=== PATIENT | female | born 1985 | race Caucasian/White ===

== ENCOUNTER → 2024-12-28 14:03 | Outpatient (REF) | payer OTHER, SELFPAY | LOC: RCS 14:03 | PROVIDERS: ATTENDING PHYSICIAN Internal Medicine Cardiovascular Disease; FAMILY PHYSICIAN Student in an Organized Health Care Education/Training Program | DX: R07.89 Other chest pain (principal); Z82.49 Family history of ischemic heart disease and other diseases of the circulatory system; R20.0 Anesthesia of skin; M79.2 Neuralgia and neuritis, unspecified | CPT/HCPCS: 93017 ==

== ENCOUNTER 2025-07-14 12:36 | Day surgery (SDC) | payer OTHER, SELFPAY ==
[2025-07-14] VITALS (17 sets, daily range): BP systolic 88–142; BP diastolic 51–93; BMI 28.3
--- NOTE | 2025-07-14 06:30 | ED.GENMED ---
History of Present Illness
General
Chief Complaint: Abdominal Pain
Source: patient
Time Seen by Provider: 07/14/25 06:07
History of Present Illness
History of Present Illness:
Note:
CHIEF COMPLAINT(S)
- Right lower quadrant abdominal pain
HISTORY OF PRESENT ILLNESS
The patient is a 39-year-old female presenting with right lower quadrant abdominal pain. She reports that the pain began suddenly and has progressively worsened. She noted swelling in the abdomen, commenting, 'I have shorts at home and I put them on
and theyre like normally theyre loose. I take them off they put a dress on and like, okay, yeah, sure its like weird,' indicating noticeable bloating. The patient denies any difficulty urinating, pain, or burning during urination. She experiences
slight nausea but describes it as manageable. No fevers were reported. The patient has a history of four sections, and she retains her appendix and ovaries. Her last menstrual period was approximately a month ago, and she initially thought
the pain might be cramps, but described it as 'more than any cramps Miya ever had.' The pain is located primarily in the right lower quadrant, with tenderness noted in McBurneys point upon examination. The abdominal examination reveals tenderness,
particularly in the right lower quadrant, aligning with the patients description, 'Thats where its at, right lower quadrant.'
PAST SURGICAL HISTORY
- Four sections
PHYSICAL EXAM
General: Alert, no acute distress.
Skin: Warm, dry.
Head: Normocephalic, atraumatic.
Neck: Supple, trachea midline.
Eye, Ears, Nose, Mouth, and Throat: Oral mucosa moist.
Cardiovascular: Normal peripheral perfusion, No edema.
Respiratory: Respirations are non-labored, lungs sound clear.
Gastrointestinal: Abdomen tender, particularly in the right lower quadrant.
Back: Normal range of motion, Normal alignment.
Musculoskeletal: Normal ROM, normal strength.
Neurological: Alert and oriented to person, place, time, and situation, No focal neurological deficit observed.
Psychiatric: Cooperative, appropriate mood & affect.
PROBLEM LIST
Acute:
- Right lower quadrant abdominal pain
- Abdominal bloating
PLAN
- Administer pain medication, including the option for stronger analgesics such as morphine, with consideration for the patients transportation needs.
- Perform laboratory work to include blood tests and a urinalysis.
- Obtain an abdominal scan to evaluate potential causes of pain, such as ovarian issues, appendicitis, colitis, or kidney stones.
- Consider potential differential diagnoses given family history and current symptoms.
DIFFERENTIAL DIAGNOSIS
The Differential Diagnosis includes, in no particular order and is not limited to:
- Appendicitis
- Ovarian cyst or torsion
- Gastrointestinal colitis
- Kidney stones
- Diverticulitis
- Ectopic (despite husbands vasectomy, rare cases may occur)
- Pelvic inflammatory disease
- Urinary tract infection
- Inflammatory bowel disease
- Hernia
Disposition:
SUMMARY OF ENCOUNTER
The patient, a 39-year-old female, presented to the emergency department with right lower quadrant abdominal pain and abdominal bloating. The pain was sudden in onset and progressively worsened. An examination revealed tenderness at McBurneys point.
Labs were ordered, including a CBC showing leukocytosis with a white blood cell count of 12.16 and 80% neutrophils, while a CMP was normal. A CT scan showed an appendicolith and evidence of acute appendicitis. The patient discussed her case with
general surgery and was advised on potential surgical intervention. Given her penicillin allergy, antibiotic treatment was initiated with levofloxacin (Levaquin) and metronidazole (Flagyl). The patients pain improved during the visit.
DISPOSITION
Admit for general surgery evaluation.
ASSESSMENT
Acute appendicitis with an appendicolith.
EMERGENCY TREATMENTS ADMINISTERED
Levofloxacin (Levaquin) and metronidazole (Flagyl) were administered due to the patients penicillin allergy.
MANAGEMENT OF THE PATIENTS CARE WAS DISCUSSED WITH
General surgery for evaluation of acute appendicitis.
PLAN
The plan includes admitting the patient for surgical evaluation and possible appendectomy. The treatment with levofloxacin and metronidazole due to her penicillin allergy was initiated. Pain management and monitoring will continue during her
hospital stay.
INDEPENDENT REVIEW OF LABS AND INTERPRETATION OF TESTS
- My independent review of CBC indicates leukocytosis with a WBC count of 12.16 and 80% neutrophils.
- My independent review of CMP shows normal results.
- My independent review of urinalysis shows no acute infection.
- My independent interpretation of the CT scan reveals an appendicolith with evidence of acute appendicitis.
MEDICATION RECONCILIATION
The patient was treated with levofloxacin (Levaquin) and metronidazole (Flagyl) due to her penicillin allergy.
MEDICAL DECISION MAKING
- Number and Complexity of Problems Addressed: Chronic conditions affecting care include a history of four sections. Differential diagnosis includes appendicitis, ovarian cyst or torsion, gastrointestinal colitis, kidney stones,
diverticulitis, ectopic , pelvic inflammatory disease, urinary tract infection, inflammatory bowel disease, and hernia.
- Data:
Category 1: The following labs and imaging tests were ordered and reviewed, including CBC, CMP, urinalysis, and CT scan, which showed an appendicolith indicative of acute appendicitis.
Category 3: Discussion of management with general surgery for further evaluation and potential surgical intervention.
- Risk: Prescription medication management with levofloxacin and metronidazole due to penicillin allergy was required. The initial treatment decision included risks associated with the potential need for surgical intervention. Consideration of
Admission/Observation: Escalation of care including admission/observation was considered given the complexity and risk of the patients presenting complaint, exam findings, and her underlying comorbidities. However, ultimately, I feel the patient is
safe for outpatient management with close follow-up. Reasoning: The work-up was reassuring, does not reveal any acute life/organ-threatening processes, the patients symptoms were well-controlled upon reevaluation, reexamination is reassuring, vitals
are stable, the patient agreeable with discharge, reliable for follow-up.
DIAGNOSIS
1. Acute appendicitis with appendicolith (K35.80).
Past History
Past History
ED Past Medical History: None; Negative Asthma, HTN, Hypercholesterolemia or NIDDM
ED Past Surgical History:
Social History
Tobacco: Non-smoker
Alcohol: Occasional
Personal:
Living: with family
Phy Exam
Physical Exam
Physical Exam:
.
Course
Orders/Labs/Results
Orders:
Orders
07/14/25 06:28
CT Abd/Pel (IV only)-DH only Urgent
Comment:
Reason For Exam: RLQ pain
0.9% Sodium Chloride 1000 ml [Nss] 1,000 ml IV BOLUS
Morphine Sulfate 4 mg IV NOW STA
Ondansetron Injectable [Zofran] 4 mg IV NOW STA
Test Result ONCE
07/14/25 06:41
Complete Blood Count/With Diff Urgent
Comprehensive Metabolic Panel Urgent
HCG, Urine Qualitative Screen Urgent
Date Specimen was Collected: 07/14/25
Time Specimen was Collected: 06:40
Lipase Urgent
Urinalysis Reflex To Culture Urgent
Date Specimen was Collected: 07/14/25
Time Specimen was Collected: 06:40
Urine Microscopic Reflex Cult Urgent
07/14/25 07:51
LevoFLOXacin 500 MG/100 ML [Levaquin] 500 mg in 100 ml IV NOW
MetroNIDAZOLE 500 MG/100 ML [Flagyl 500 mg] 100 ml IV NOW
Abnormal Lab Results
07/14/25
06:41
WBC 12.6 H 10^3/uL
(4.8-10.8)
Abs Immat Gran (auto) 0.1 H 10^3/uL
(0-0.05)
Absolute Neuts (auto) 10.2 H 10^3/uL
(1.4-6.5)
Absolute Lymphs (auto) 1.0 L 10^3/uL
(1.2-3.4)
Absolute Monos (auto) 1.2 H 10^3/uL
(0.1-0.6)
Neutrophils % 80.8 H %
(42.2-75.2)
Lymphocytes % 8.0 L %
(20.5-51.1)
Monocytes % 9.8 H %
(1.7-9.3)
Chloride 109 H mmol/L
(98-107)
Glucose 100 H mg/dl
(70-99)
Urine Bacteria (Reflex) Few A
(Negative)
Urine Albumin (Reflex) 1+ A
(Neg - Trace)
07/14/25 06:41
07/14/25 06:41
Vital Signs
Initial and Last Documented VS:
Initial Vital Signs
Temp Pulse Resp BP Pulse Ox
98.2 F 96 20 142/75 98
07/14/25 05:52 07/14/25 05:52 07/14/25 05:52 07/14/25 05:52 07/14/25 05:52
Last Documented Vital Signs
Temp Pulse Resp BP Pulse Ox
98.2 F 84 14 114/74 98
07/14/25 05:52 07/14/25 07:00 07/14/25 07:00 07/14/25 07:00 07/14/25 07:00
*Pulse Oximetry
SaO2: 98
Oxygen Mode of Delivery: Room air
Patient hypoxic: no
*Critical Care Note
Total Time (30-74mins, 75-104mins- exclusive of procedures): Not Applicable
ED Attending Note
-
Portions of this chart may have been created with voice recognition software.� Occasional wrong word or��sound alike� substitutions may have occurred due to the inherent limitations of voice recognition software.
Discharge Plan
Departure
Patient Disposition: Admit
Date of Disposition: 07/14/25
Time of Disposition: 07:50
Admit to: Med/Surg
Presentation/result/management discussed w/ accepting MD/DO: Dr. Travis
Discharge Problem:
Acute appendicitis
Prescriptions:
No Action
multivitamin Tablet
1 tab PO DAILY
Vitamin D3
1 tab PO DAILY
Rx Instructions:
unsure of mg
tranexamic acid
1 tab PO DAILY PRN (Reason: heavy periods)
Rx Instructions:
for heavy period
Referrals:
Jaye Jorge MD [Family Provider, Internal Medicine]
Interventions
Interventions:
*Risk Screen - Suicide Last Done: 07/14/25 05:52
*General Assessment Last Done: 07/14/25 05:52
*Neglect/Abuse Screening Last Done: 07/14/25 05:52
*ED- Fall Risk Assessment Last Done: 07/14/25 05:52
*ED COVID-19 Vaccine History Last Done: 07/14/25 05:52
WR-Nzjdwg-Rnhprgfuul Assessment Last Done: 07/14/25 06:30
Discharge Date and Time
Print Language: RWANDAN
[2025-07-14 06:51] LABS: Hematocrit 37.8 % (37.0-47.0); Hemoglobin 12.9 g/dL (12.0-16.0); Mean Corp Hgb Conc. 34.1 g/dL (33.0-37.0); Mean Corpuscular Volume 84.4 fL (81.0-99.0); Nucleated Red Blood Cells % 0 %; Platelet Count 250 10^3/uL (130-400); Red Cell Dist. Width 12.2 % (11.5-14.5)
[2025-07-14 06:54] LABS: HCG, Urine Qualitative Screen Negative
[2025-07-14] MEDS: NSS 1000 IV ×2 (06:54→15:40)
[2025-07-14] MEDS: ZOFRAN 4 MG IV ×3 (06:54→17:25)
[2025-07-14] MEDS: MORPHINE SULFATE 4 MG IV ×3 (06:55→17:15)
[2025-07-14 07:06] LABS: Urine Character Cloudy (Clear)
[2025-07-14 07:21] LABS: ALT (SGPT) 22 U/L (0-35); AST (SGOT) 25 U/L (14-36); Albumin 4.3 g/dl (3.5-5.0); Alkaline Phosphatase 72 U/L (38-126); Blood Urea Nitrogen 13 mg/dl (7-17); Calcium 9.0 mg/dl (8.4-10.2); Carbon Dioxide 25 mmol/L (22-30); Chloride 109 mmol/L (98-107); Estimated Creatinine Clearance 122 ml/min; Glucose 100 mg/dl (70-99); Lipase 26 U/L (23-300); Potassium 4.3 mmol/L (3.5-5.1); Sodium 140 mmol/L (135-145); Total Protein 7.0 g/dl (6.3-8.2); eGFR > 60.00
[2025-07-14 07:30] LABS: Urine Red Blood Cell 0-2 /HPF (0-2)
[2025-07-14] MEDS: FLAGYL 500 MG 100 IV ×2 (08:50→17:16)
[2025-07-14] MEDS: DILAUDID 1 MG IV (10:37)
[2025-07-14] MEDS: LEVAQUIN 100 IV (10:40)
--- NOTE | 2025-07-14 11:43 | W.SUR.PREOP ---
Pre-Operative Surgical Note
-
I have examined this patient prior to the performance of the scheduled procedure.
The patient's condition is unchanged from the time of the current History and
Physical and the patient is able to undergo the scheduled procedure.
--- NOTE | 2025-07-14 11:43 | HPS.HSE ---
Family Physician
-
Family Physician: Jaye Jorge MD
Chief Complaint
-
Right lower quadrant abdominal pain
History of Present Illness
This is a 39-year-old female who presents with a 1 day history of worsening right lower quadrant abdominal pain with some associated nausea. The patient denies Fever, Chest Pain, Shortness Of Breath, Vomiting, changes in urinary and bowel habits,
unintentional weight loss.
Medical History
Past Medical History
Past Medical History: Reports None and Other
Past Surgical History: Reports (X 4)
Social History
Tobacco: Non-smoker
Alcohol: Occasional
Drug: None
Personal:
Living: With Family
Family History
Family History: Not pertinent
Allergies / Home Medications
Allergies reflects when Allergies were last updated in [employer].
Home Medications with original date entered in [employer]
Allergy/Medication List:
Allergic to penicillins, Bactrim
Review of Systems
-
A 12 point ROS was completed and negative except as noted: Yes
Physical Exam
Vital Signs
Vital Signs
Temp Pulse Resp BP Pulse Ox
98.2 F 87 25 109/65 97
07/14/25 05:52 07/14/25 10:45 07/14/25 10:45 07/14/25 10:00 07/14/25 10:45
Physical Exam
General: Well Developed and Appears in Distress
Respiratory: Non Labored Respirations
GI: Soft, Tender and Distended
Neuro: AO x 3
Psych: Anxious
Laboratory Results
-
07/14/25 06:41
07/14/25 06:41
Laboratory Results
Total Bilirubin 1.1 mg/dl (0.2-1.3) 07/14/25 06:41
AST 25 U/L (14-36) 07/14/25 06:41
ALT 22 U/L (0-35) 07/14/25 06:41
Alkaline Phosphatase 72 U/L (38-126) 07/14/25 06:41
Lipase 26 U/L (23-300) 07/14/25 06:41
Data Reviewed
-
CT Scan: Image Personally Visualized and interpreted, Report Reviewed by me, Discussed with Patient and Discussed with Family
Lab Data: Labs Reviewed by me, Discussed with Patient and Discussed with Family
Impression/Plan
-
IMPRESSION:
This is a 39-year-old female who presents with a 1 day history of abdominal pain found to have acute appendicitis.
PLAN:
Will plan for a laparoscopic appendectomy in the OR today.
I explained that her appendix is retrocecal which can make these cases somewhat challenging. It is possible that it is perforated but appears contained. She may wake up with a drain. I also explained that she has an umbilical hernia which we will
use as one of her port sites but because of her diastases she is at high risk for developing a hernia here postoperatively.
Risks/Benefits/Alternatives, expected postoperative course and possible complications (bleeding, infection, injury to surrounding structures, acute/chronic pain) discussed at length. Patient wishes to proceed with surgery. All questions answered.
Consent obtained.
I spent 75 minutes in total for the care of this patient today including direct patient care and counseling, reviewing labs, imaging, coordination of care, as well as documentation.
--- NOTE | 2025-07-14 13:28 | W.IMMPOSTOP ---
Surgical Immed Post Op Note
-
Primary Surgeon: Delta Garcia MD
Assisting Surgeon: None
Pre-op Diagnosis: Acute appendicitis
Post-op Diagnosis: Same
Procedure Performed: Laparoscopic appendectomy
Anesthesia Type: General
Specimen / Cultures: Appendix
Estimated Blood Loss: 3 cc
Complications: None
Operative Findings: Acutely inflamed, suppurative but nonperforated retrocecal appendicitis. Base somewhat thickened so ligated with a 45 esteban load on an Endo VAL stapler. Some murky fluid in the right upper quadrant was cultured.
POST OP PLAN:
Imaging: None
Labs: Routine AM
Diet: Advance to Regular as tolerated
Analgesia: Tylenol 650mg q6 Ladonna, Dilaudid 0.5mg q2h PRN
Neuro/vascular checks: Per unit protocol
AC/AP: Hold Therapeutic AC, Ok for DVT PPx
Activity: Ad Nereida
Wound/Incisions/Drains: Routine
Abx: Will plan for 4 days of antibiotics.
Dispo: RNF, anticipate discharge home later today versus tomorrow pending postoperative course.
--- NOTE | 2025-07-14 13:29 | OR.RPT ---
Operative Report
Operative Report
Patient Name: Rosa Pinto
: 1985
Date of Operation: 07/14/2025
Preoperative Diagnosis: Acute Appendicitis
Postoperative Diagnosis: Same
Procedure(s):
Laparoscopic Appendectomy
Surgeon(s):
Dr. Garcia
Quality Assurance Clerk(s):
None
Anesthesia: General
Estimated Blood Loss: 3 cc
Urine Output: None
Drains/Lines/Implants: None
Specimens:
1. Appendix
HPI/Surgical Indications:
This is a 39-year-old female who presents with a 1 day history of abdominal pain. Exam, labs and imaging are consistent with acute appendicitis. Risks/Benefits/Alternatives were discussed at length, and the patient agreed to proceed with surgery.
Operative Findings: Acutely inflamed, suppurative but nonperforated retrocecal appendicitis. Base somewhat thickened so ligated with a 45 flores load on an Endo VAL stapler. Some murky fluid in the right upper quadrant was cultured.
Procedure Description:
The patient was placed in the supine position, with the left arm tucked, and general anesthesia was induced. The abdomen was prepared and draped in a sterile fashion so as to expose the entire abdomen. A surgical time out was taken. Abdominal access
was obtained with an 12 mm infra-umbilical Arpita Entry through her known umbilical hernia. After confirming no injury on entrance, two additional 5mm ports were placed in the suprapubic area just off midline and in the left lower quadrant. The
patient was placed in Trendelenberg with the right slightly up . The appendix was identified in a retrocecal location and a window was created in the mesoappendix. The appendix was suppurative and inflamed but not perforated. Using a laparoscopic
bipolar energy device, the meso appendix was divided. The base of the appendix appeared mildly thickened and was ligated/divided using a 45 Flores Endo VAL. The appendix was placed in a specimen retrieval bag. There was some murky fluid in the right
upper quadrant which was cultured and then suctioned up until clear. Hemostasis was confirmed and the ports were removed under visualization. The specimen was passed off the field. The umbilical port and hernia site was closed in the transverse
direction with a running 0-PDS and the skin for all three ports was closed with interrupted monocryls and covered with dermabond. The patient was awoken from anesthesia in good condition and transported to the recovery area.
I was the attending physician and performed the procedure with no assistance. I was present for all portions of the case.
Delta Garcia MD
--- NOTE | 2025-07-14 14:58 | PTCARENOTE ---
attempted to help pt get dressed and prepare for discharge to home, pt w/increased pain, nausea, etc. Notified Dr Garcia, at bedside, awaiting orders and will admit
--- NOTE | 2025-07-14 15:38 | SUR.PHASEII ---
pt admitted to rm 210 accompanied by spouse, drowsy, pale, c/o pain 5-04/17, nausea.
[2025-07-14] MEDS: ROXICODONE 5 MG PO ×2 (15:39→22:40)
[2025-07-14] MEDS: COLACE 100 MG PO (19:20)
[2025-07-14] MEDS: TORADOL 10 MG IV (19:40)
[2025-07-15] MEDS: TORADOL 10 MG IV (02:19)
[2025-07-15] MEDS: FLAGYL 500 MG 100 IV ×2 (02:20→10:06)
[2025-07-15 03:23] VITALS: BP 98/55
[2025-07-15] MEDS: ROXICODONE 5 MG PO ×2 (04:00→08:01)
[2025-07-15 04:23] VITALS: BP 98/55
[2025-07-15] MEDS: NSS 1000 IV (05:01)
[2025-07-15 07:20] VITALS: BP 109/66
[2025-07-15] MEDS: COLACE 100 MG PO (08:01)
[2025-07-15] MEDS: CIPRO 400 MG 200 IV (08:01)
[2025-07-15] MEDS: TYLENOL 650 MG PO (10:09)
--- NOTE | 2025-07-15 10:29 | CM ---
CM following re: discharge planning.
Reviewed pt's chart, met with pt.
Pt is a 39 year old female, admitted with primary dx of Acute appendicitis, POD#1 s/p Laparoscopic appendectomy.
Pt reports she lives with and 4 children in a 2SH, has very supportive family, including mother, father, , siblings and children. Pt described herself as independent in all areas [employer] and caring for her children at home. Pt stated she
is aware she will be discharged home today and per pt her father will transport home.
PCP: princess Jorge MD
Pharmacy: [facility].
D/c plan: home no needs. Father to transport,.
--- NOTE | 2025-07-15 10:44 | W.PN.GS2 ---
Today's Communication / Plan
-
dispo planning
Assessment / Plan
-
39 yo female who presented yesterday with acute appendicitis now POD #1 lap appi
AFVSS
Pain improving
Tolerating diet
Plan:
continue regular diet as tolerated
analgesics prn
OOB/Ambulate
c/w abx x4 days, transition to PO upon discharge
dispo planning
Subjective Data
-
Date of Service: July 15, 2025
Pt seen and examined at bedside with Dr. Garcia. Denies n/v. Tolerating diet but poor appetite. Passing flatus. Still quite sore but improving.
Objective Data
-
Intake and Output
07/14/25 07/15/25 07/16/25
06:59 06:59 06:59
Intake Total 2009 480 / 480
Balance 2009 480 / 480
Intake:
Oral fluids 480 / 480 480 / 480
IV fluids (Total) 1430 / 1430
normosol 150 / 150
IV piggybacks 100 / 100
Vital Signs
Temp Pulse Resp BP Pulse Ox
98.3 F 70 16 109/66 100
07/15/25 07:20 07/15/25 07:20 07/15/25 07:20 07/15/25 07:20 07/15/25 07:20
Lab Results
07/14/25 06:41
07/14/25 06:41
Calcium 9.0 mg/dl (8.4-10.2) 07/14/25 06:41
Total Bilirubin 1.1 mg/dl (0.2-1.3) 07/14/25 06:41
AST 25 U/L (14-36) 07/14/25 06:41
ALT 22 U/L (0-35) 07/14/25 06:41
Alkaline Phosphatase 72 U/L (38-126) 07/14/25 06:41
Total Protein 7.0 g/dl (6.3-8.2) 07/14/25 06:41
Albumin 4.3 g/dl (3.5-5.0) 07/14/25 06:41
Physical Exam
-
NAD
ABD soft, expected tenderness, nd
Incisions well approximated, intact glue, no erythema, mild ecchymosis
Patient has a poe catheter: No
Patient has a central line: No
[2025-07-15 11:30] VITALS: BP 125/68
[2025-07-15] MEDS: ULTRAM 50 MG PO (11:33)
== END 2025-07-15 12:19 | disposition home or self-care (01) ==
LOC: SDS 12:36
PROVIDERS: ATTENDING PHYSICIAN Surgery; EMERGENCY PHYSICIAN Emergency Medicine; FAMILY PHYSICIAN Student in an Organized Health Care Education/Training Program
DX: K35.80 Unspecified acute appendicitis (principal)
CPT/HCPCS: 44970; 74177; 80053; 81003; 81015; 81025; 83690; 85025; 87070; 87075; 87205; 88304; 96365; 96367; 96375; 96376; 99285; Q9967